=== PATIENT | female | born 1950 | race Hispanic/Latino ===

== ENCOUNTER 2023-06-07 16:33 | Emergency (ER) | payer OTHER ==
[~2023-06-07] VITALS: Ht 160 cm; Wt 73.5 kg
[2023-06-07 16:43] VITALS: BP 173/61; PULSE 76; RESP 16; O2SAT 98
[2023-06-07] MEDS ORDERED: IBUPROFEN 600 MG TABLET PO ONE (18:30)
== END 2023-06-07 18:51 | disposition home or self-care (01) ==
LOC: EDH 16:33
DX: S00.03XA Contusion of scalp, initial encounter (principal); I10 Essential (primary) hypertension; E78.00 Pure hypercholesterolemia, unspecified; Z90.710 Acquired absence of both cervix and uterus; V49.9XXA Car occupant (driver) (passenger) injured in unspecified traffic accident, initial encounter; Y93.89 Activity, other specified; Y92.89 Other specified places as the place of occurrence of the external cause; Y99.8 Other external cause status
CPT/HCPCS: 70450; 72125